=== PATIENT | female | born 1985 | race African-American/Black ===

== ENCOUNTER 2018-11-27 16:06 | Emergency (ER) | payer SELFPAY | END 2018-11-27 16:50 | disposition home or self-care (01) | LOC: ERS 16:06 | DX: M54.6 Pain in thoracic spine (principal); G89.29 Other chronic pain; J45.909 Unspecified asthma, uncomplicated; F41.9 Anxiety disorder, unspecified; F31.9 Bipolar disorder, unspecified | CPT/HCPCS: 99283 ==

== ENCOUNTER 2018-12-01 14:07 | Emergency (ER) | payer MEDICAID, SELFPAY ==
[2018-12-01] MEDS ORDERED: Acetaminophen 500 MG TAB ONE (15:34)
== END 2018-12-01 15:25 | disposition home or self-care (01) ==
LOC: ERS 14:07
DX: K04.7 Periapical abscess without sinus (principal); J45.909 Unspecified asthma, uncomplicated; F41.9 Anxiety disorder, unspecified; F31.9 Bipolar disorder, unspecified
CPT/HCPCS: 99282

== ENCOUNTER 2019-03-13 16:47 | Emergency (ER) | payer MEDICAID, OTHER | END 2019-03-13 17:58 | disposition home or self-care (01) | LOC: ERS 16:47 | DX: J06.9 Acute upper respiratory infection, unspecified (principal); J45.909 Unspecified asthma, uncomplicated; F31.9 Bipolar disorder, unspecified | CPT/HCPCS: 99283 ==

== ENCOUNTER 2019-04-19 08:30 | Day surgery (SDC) | payer OTHER ==
[~2019-04-19 08:30] MED LIST: Acetaminophen 500 MG TAB PO SCH; Iron Sucrose Complex 500 MG in Sodium Chloride 0.9% 250 ML 250 ML IVPB SCH
[2019-04-19] MEDS ORDERED: Iron Sucrose Complex 500 MG in Sodium Chloride 0.9% 250 ML 250 ML IVPB SCH (08:45)
[2019-04-19 10:43] VITALS: BP 117/89; TEMP 98.8
[2019-04-19] MEDS ORDERED: Acetaminophen 325 MG TAB ONE (12:34)
[2019-04-19] MEDS ORDERED: diphenhydrAMINE 25 MG CAP ONE (12:37)
[2019-04-19] MEDS ORDERED: Acetaminophen 325 MG TAB PO SCH (12:45)
[2019-04-19] MEDS ORDERED: Ondansetron ODT 4 MG TAB PO SCH (12:45)
[2019-04-19] MEDS ORDERED: diphenhydrAMINE 25 MG CAP PO SCH (12:45)
== END 2019-04-19 15:41 | disposition home or self-care (01) ==
LOC: ONC/OP 08:30
PROVIDERS: ATTEND Family Medicine
DX: E61.1 Iron deficiency (principal)
CPT/HCPCS: 93005; 93010; 96365; 96366; J1756; J7050; Q0162; Q0163